=== PATIENT | male | born 1935 | race Caucasian/White ===

== ENCOUNTER 2020-08-07 22:28 | Inpatient (IN) | payer MEDICARE, OTHER ==
[~2020-08-07] VITALS: Ht 175.3 cm; Wt 82.6 kg
[~2020-08-07 22:28] MED LIST: ASPIRIN EC81 MG PO; KEFLEX CAP 500500 MG PO; LOTRISONE CREAM15 GM TP
[2020-08-07 23:03] LABS: HEMOGLOBIN 13.2 gm/dl (14.0-17.5); RED BLOOD COUNT 4.46 M/UL (4.20-5.50); WHITE BLOOD COUNT 10.1 K/UL (4.5-11.0)
[2020-08-08] MEDS ORDERED: ATORVASTATIN CA40 MG PO (07:59)
[2020-08-08] MEDS ORDERED: MONTELUKAST SOD10 MG PO (08:08)
[2020-08-08] MEDS ORDERED: WIXELA 500-501 EACH INH (08:12)
[2020-08-08] MEDS ORDERED: NATEGLINIDE120 MG PO (08:15)
[2020-08-08] MEDS ORDERED: DIABETA 5 MG TAB5 MG PO (09:38)
[2020-08-08] MEDS ORDERED: FLOMAX 0.4 MG0.4 MG PO (09:40)
[2020-08-08] MEDS ORDERED: VITAMIN D21250 MCG PO (09:41)
[2020-08-08] MEDS ORDERED: TOBRAMYCIN-DEX2.5 ML EYELF (09:59)
[2020-08-08] MEDS ORDERED: JANUVIA100 MG PO (10:19)
[2020-08-08] MEDS ORDERED: VENTOLIN HFA 66.7 GM INH (13:34)
[2020-08-09 03:29] LABS: RED BLOOD COUNT 4.42 M/UL (4.20-5.50); WHITE BLOOD COUNT 7.7 K/UL (4.5-11.0)
[2020-08-09 03:43] LABS: BUN/CREATININE RATIO 19 (0-10)
[2020-08-10 06:27] LABS: HEMOGLOBIN 13.7 gm/dl (14.0-17.5); RED BLOOD COUNT 4.65 M/UL (4.20-5.50); WHITE BLOOD COUNT 9.6 K/UL (4.5-11.0)
[2020-08-10 07:12] LABS: BUN/CREATININE RATIO 20 (0-10)
[2020-08-10] MEDS ORDERED: AUGMENTIN 875-1 EACH PO (08:53)
[2020-08-10] MEDS ORDERED: DECADRON6 MG PO (08:53)
[2020-08-11 06:02] LABS: HEMOGLOBIN 14.3 gm/dl (14.0-17.5); RED BLOOD COUNT 4.84 M/UL (4.20-5.50); WHITE BLOOD COUNT 9.8 K/UL (4.5-11.0)
[2020-08-11 06:41] LABS: BUN/CREATININE RATIO 22 (0-10)
[2020-08-11] MEDS ORDERED: LISINOPRIL2.5 MG PO (16:57)
== END 2020-08-11 16:19 | disposition home or self-care (01) | DRG 177 ==
LOC: ER1 22:28 → CDU 08-08 07:15 → MED SURG 4 08-08 07:15 → CDU 08-08 07:15 → MED SURG 4 08-08 17:28
PROVIDERS: Physician Assistant; ADMIT Internal Medicine
PROC: 8E0ZXY6 Isolation (ICD-10-PCS; 2020-08-08)
PROC: B24BZZZ Ultrasonography of Heart with Aorta (ICD-10-PCS; principal; 2020-08-10)
DX: U07.1 COVID-19 (principal); G93.41 Metabolic encephalopathy; J12.82 Pneumonia due to coronavirus disease 2019; M62.82 Rhabdomyolysis; I42.8 Other cardiomyopathies; E11.649 Type 2 diabetes mellitus with hypoglycemia without coma; I10 Essential (primary) hypertension; I49.5 Sick sinus syndrome; Z95.0 Presence of cardiac pacemaker; H91.90 Unspecified hearing loss, unspecified ear; N40.0 Benign prostatic hyperplasia without lower urinary tract symptoms; J44.9 Chronic obstructive pulmonary disease, unspecified; F17.210 Nicotine dependence, cigarettes, uncomplicated; Z98.49 Cataract extraction status, unspecified eye; Z96.1 Presence of intraocular lens; Z83.3 Family history of diabetes mellitus; L89.152 Pressure ulcer of sacral region, stage 2
CPT/HCPCS: ECHO; 36415; 36600; 71045; 80048; 80053; 81001; 82550; 82553; 82803; 82962; 83036; 83605; 83735; 83874; 83880; 84484; 85025; 87040; 87086; 93306; 96365; 96372; 96375; 96376; 97162; 99285; A6212; G0378; J0696; J1100; J1650; J3475; J7070; U0002

== ENCOUNTER → 2020-08-23 | Outpatient (CLI) | payer MEDICARE, OTHER ==
[~2020-08-23] MED LIST changes: +ATORVASTATIN CA40 MG PO; +AUGMENTIN 875-1 EACH PO; +DECADRON6 MG PO; +DIABETA 5 MG TAB5 MG PO; +FLOMAX 0.4 MG0.4 MG PO; +JANUVIA100 MG PO; +LISINOPRIL2.5 MG PO; +MONTELUKAST SOD10 MG PO; +NATEGLINIDE120 MG PO; +TOBRAMYCIN-DEX2.5 ML EYELF; +VENTOLIN HFA 66.7 GM INH; +VITAMIN D21250 MCG PO; +WIXELA 500-501 EACH INH
== END ==
LOC: KOH-I 09:29
DX: J18.9 Pneumonia, unspecified organism (principal)
CPT/HCPCS: 71046

== ENCOUNTER → 2020-09-12 | Outpatient (CLI) | payer MEDICARE, OTHER | LOC: KOH-I 11:37 | DX: J18.9 Pneumonia, unspecified organism (principal); Z86.16 Personal history of COVID-19 | CPT/HCPCS: 71046 ==